=== PATIENT | female | born 2000 | race Caucasian/White ===

== ENCOUNTER 2022-11-14 10:48 | Outpatient (RCR) | payer BC, SELFPAY | END 2023-03-01 23:59 | disposition home or self-care (01) | PROVIDERS: Visit Provider Physician Assistant Surgical | DX: M84.369A Stress fracture, unspecified tibia and fibula, initial encounter for fracture (principal); S86.992A Other injury of unspecified muscle(s) and tendon(s) at lower leg level, left leg, initial encounter; S86.891A Other injury of other muscle(s) and tendon(s) at lower leg level, right leg, initial encounter; R93.7 Abnormal findings on diagnostic imaging of other parts of musculoskeletal system; M62.81 Muscle weakness (generalized); M79.605 Pain in left leg; Z51.89 Encounter for other specified aftercare | CPT/HCPCS: 97110; 97140; 97161 ==